=== PATIENT | female | born 2000 | race Caucasian/White ===

== ENCOUNTER 2021-11-27 17:10 | Inpatient (IN) | payer OTHER ==
[~2021-11-27] VITALS: Ht 167.6 cm; Wt 86.6 kg
[2021-11-27 18:35] LABS: HEMOGLOBIN 12.9 gm/dl (12.3-15.3); RED BLOOD COUNT 4.03 M/UL (4.00-5.10); WHITE BLOOD COUNT 15.1 K/UL (4.5-11.0)
[2021-11-27] MEDS ORDERED: PRENATAL MULTI1 EAC4 PO (18:44)
[2021-11-28] MEDS ORDERED: COLACE100 MG PO (22:30)
[2021-11-28] MEDS ORDERED: IBUPROFEN600 MG PO (22:30)
[2021-11-28] MEDS ORDERED: PERCOCET 5/325 T1 EA PO (22:30)
[2021-11-28] MEDS ORDERED: HEMOCYTE324 MG PO (22:30)
[2021-11-29 06:45] LABS: HEMOGLOBIN 10.2 gm/dl (12.3-15.3)
== END 2021-11-30 16:39 | disposition home or self-care (01) | DRG 807 ==
LOC: GENOP 17:10 → OB 17:31
PROVIDERS: ADMIT Obstetrics & Gynecology
PROC: 10D07Z6 Extraction of Products of Conception, Vacuum, Via Natural or Artificial Opening (ICD-10-PCS; principal; 2021-11-28)
PROC: 10907ZC Drainage of Amniotic Fluid, Therapeutic from Products of Conception, Via Natural or Artificial Opening (ICD-10-PCS; 2021-11-28)
PROC: 0W8NXZZ Division of Female Perineum, External Approach (ICD-10-PCS; 2021-11-28)
PROC: 3E033VJ Introduction of Other Hormone into Peripheral Vein, Percutaneous Approach (ICD-10-PCS; 2021-11-28)
PROC: 4A1H7CZ Monitoring of Products of Conception, Cardiac Rate, Via Natural or Artificial Opening (ICD-10-PCS; 2021-11-28)
PROC: 10H073Z Insertion of Monitoring Electrode into Products of Conception, Via Natural or Artificial Opening (ICD-10-PCS; 2021-11-28)
PROC: 10H07YZ Insertion of Other Device into Products of Conception, Via Natural or Artificial Opening (ICD-10-PCS; 2021-11-28)
PROC: 3E0234Z Introduction of Serum, Toxoid and Vaccine into Muscle, Percutaneous Approach (ICD-10-PCS; 2021-11-28)
DX: O99.824 Streptococcus B carrier state complicating childbirth (principal); Z37.0 Single live birth; O99.02 Anemia complicating childbirth; Z20.822 Contact with and (suspected) exposure to COVID-19; D64.9 Anemia, unspecified; Z3A.39 39 weeks gestation of pregnancy; Z23 Encounter for immunization
CPT/HCPCS: 36415; 81001; 82800; 85014; 85018; 85025; 90471; 90715; J0690; J2590; J7120; U0002